=== PATIENT | male | born 1965 | race Caucasian/White ===

== ENCOUNTER 2019-10-06 11:22 | Inpatient (IN) | payer BC ==
[2019-10-06] MEDS ORDERED: LORazepam TAB(*) 1 MG PO ONE ×3 (11:44→12:49)
--- NOTE | 2019-10-06 11:44 | ED ---
Substance Abuse/Use - HPI Summary HPI Summary: The patient is a 54 y/o male arriving by ambulance [facility] with a chief complaint of detox request and medical clearance for alcohol abuse worse over the last week. He reports that he is a chronic alcoholic and recently had a plan to be admitted to [facility] [[email or web address]] for rehab, but he went to the facility this morning and was not medically clear. He states that he has been drinking constantly, approximately two pints of vodka a day, for the last week since finding out the plan for going to [facility] today. This morning, he had pint of vodka prior to leaving his home at 0800 this morning in [place]. He notes that he had been nauseous and vomiting with blood on the ride from [place] to [facility] [[email or web address] Because he was not medically clear, he transported to the ED from [facility] [[email or web address]] via ambulance. He states that he is going through withdrawal as he is very anxious now. He has been sober before from [id number] but relapsed due to stressors with his leaving. He has been placed on various psychiatric medications which he is non- complaint with secondary to his drinking habits. He denies any other past medical history other than alcoholism. No substance use. Medications reviewed. Allergies noted. - History Of Current Complaint Chief Complaint: EDDetoxRequest Stated Complaint: DT'S PER EMS Time Seen by Provider: 10/06/19 11:32 Hx Obtained From: Patient Onset/Duration of Drug/ETOH Abuse: Increased Since: - the last week Ingestion History: Type/Name Of Drug - vodka, Amount Ingested - 2 pints/day, Approximate Time Of Ingestion - last at 0800 States Increased Use Since: within the last week Timing Of Abuse: Daily Severity Initially: Moderate Severity Currently: Moderate Character: Anxious Aggravating Factor(s): Recent Stress Alleviating Factor(s): Nothing Associated Signs And Symptoms: Nausea, Vomiting, Other: - anxiety Related Hx: Drug/Alcohol Last Used @ - alcohol at 0800 this morning - Allergies/Home Medications Allergies/Adverse Reactions: Allergies Allergy/AdvReac Type Severity Reaction Status Date / Time No Known Allergies Allergy Verified 10/06/19 11:38 Home Medications: Home Medications Acamprosate DR (NF) [Campral (NF)] 666 mg PO TID 10/06/19 [History Confirmed ] Atorvastatin* [Lipitor*] 40 mg PO DAILY 10/06/19 [History Confirmed 10/06/19] Famotidine TAB 40 MG(NF) [Pepcid TAB 40 MG(NF)] 40 mg PO DAILY 10/06/19 [ History Confirmed 10/06/19] Folic Acid TAB* [Folvite TAB*] 1 mg PO DAILY 10/06/19 [History Confirmed ] Gabapentin CAP(*) [Neurontin 300 CAP(*)] 900 mg PO BEDTIME 10/06/19 [History Confirmed 10/06/19] Lisinopril TAB* [Prinivil TAB*] 20 mg PO DAILY 10/06/19 [History Confirmed 10/06] Meloxicam(NF) [Mobic(NF)] 15 mg PO DAILY 10/06/19 [History Confirmed 10/06/19] Metoprolol Tartrate TAB* [Lopressor TAB*] 50 mg PO DAILY 10/06/19 [History Confirmed 10/06/19] Naltrexone TAB* 50 mg PO DAILY 10/06/19 [History Confirmed 10/06/19] PARoxetine HCL TAB* [Paxil TAB*] 20 mg PO BEDTIME 10/06/19 [History Confirmed ] Pantoprazole TAB * [Protonix TAB*] 40 mg PO BID 10/06/19 [History Confirmed ] busPIRone TAB* [Buspar *] 30 mg PO BID 10/06/19 [History Confirmed 10/06/19] traZODone TAB* [Desyrel TAB*] 50 - 100 mg PO BEDTIME 10/06/19 [History Confirmed 10/06/19] PMH/Surg Hx/FS Hx/Imm Hx Endocrine/Hematology History: Denies: Hx Diabetes Respiratory History: Denies: Hx Asthma Psychiatric History: Reports: Hx Substance Abuse - alcohol - Surgical History Surgical History: None Surgery Procedure, Year, and Place: none Infectious Disease History: No Infectious Disease History: Denies: Traveled Outside the [place] in Last 30 Days - Family History Known Family History: Negative: Respiratory Disease, Seizure Disorder - Social History Alcohol Use: Daily Hx Substance Use: No Substance Use Type: Reports: None Smoking Status (MU): Unknown if Ever Smoked Review of Systems Positive: Vomiting - with blood, Nausea Psychological: Other - intoxicated Positive: Anxious All Other Systems Reviewed And Are Negative: Yes Physical Exam - Summary Physical Exam Summary: Appearance: The patient is well-nourished in no acute distress and in no acute pain. Skin: The skin is warm and dry, and skin color reflects adequate perfusion. HEENT: The head is normocephalic and atraumatic. The pupils are equal and reactive. The conjunctivae are clear and without drainage. Nares are patent and without drainage. Mouth reveals moist mucous membranes, and the throat is without erythema and exudate. The external ears are intact. The ear canals are patent and without drainage. The tympanic membranes are intact. Neck: The neck is supple with full range of motion and non-tender. There are no carotid bruits. There is no neck vein distension. Respiratory: Chest is non-tender. Lungs are clear to auscultation and breath sounds are symmetrical and equal. Cardiovascular: Heart is regular rate and rhythm. There is no murmur or rub auscultated. There is no peripheral edema and pulses are symmetrical and equal. Abdomen: The abdomen is soft and non-tender. There are normal bowel sounds heard in all four quadrants and there is no organomegaly palpated. Musculoskeletal: There is no back tenderness noted. Extremities are non-tender with full range of motion. There is good capillary refill. There is no peripheral edema or calf tenderness elicited. Neurological: Patient is alert and oriented to person, place and time. The patient has symmetrical motor strength in all four extremities. Cranial nerves are grossly intact. Deep tendon reflexes are symmetrical and equal in all four extremities. Psychiatric: The patient has an appropriate affect and does not exhibit any anxiety or depression. Triage Information Reviewed: Yes Vital Signs On Initial Exam: Initial Vitals Temp Pulse Resp BP Pulse Ox 98.4 F 128 22 192/96 95 10/06/19 11:23 10/06/19 11:23 10/06/19 11:23 10/06/19 11:23 10/06/19 11:23 Vital Signs Reviewed: Yes Procedures - Sedation Patient Received Moderate/Deep Sedation with Procedure: No Diagnostics - Vital Signs Vital Signs Temp Pulse Resp BP Pulse Ox 10/06/19 11:23 98.4 F 128 22 192/96 95 - Laboratory Result Diagrams: 10/06/19 11:47 10/06/19 11:47 Lab Statement: Any lab studies that have been ordered have been reviewed, and results considered in the medical decision making process. Re-Evaluation - Re-Evaluation First Eval Re-Evaluation Time: 14:00 Comment: Patient spoke with social work, agrees with admisison Course/Dx - Course Course Of Treatment: He remained stable here in the emergency department. He was given sedative medication for anxiety and agitation. He has a history of severe alcohol withdrawal and I spoke with the hospitalist Dr. Nicole about admitting him OBV. - Diagnoses Provider Diagnoses: Alcohol withdrawal - Physician Notifications Discussed Care Of Patient With: Jacinda Saldana - social work Instructed by Provider To: Admit As Observation - I spoke with Jacinda concerning the patient returning to [facility], and she states that the physician there is concerned of withdrawal for the patient as he has experienced seizures in the past. He will be medically clear at 20:00 tonight, which is too late for him to go to [facility] tonight as well. Jacinda will work towards a group home admission for the patient, which he agrees with. I discussed the patients case with Dr. Gagnon, who accepts the patient for admission [14:30]. Discharge ED - Sign-Out/Discharge Documenting (check all that apply): Patient Departure - Patient accepted for admission by Dr. Gagnon. - Discharge Plan Condition: Stable Disposition: ADMITTED TO [facility] Referrals: No Primary Care Phys,NOPCP [Primary Care Provider] - - Billing Disposition and Condition Condition: STABLE Disposition: Admitted to [facility] - Attestation Statements Document Initiated by Kaleb: Yes Documenting Scribe: Julia Low Provider For Whom Kaleb is Documenting (Include Credential): Dr. Abrahan Hassan MD Scribe Attestation: IJulia scribed for Dr. Abrahan Hassan MD on 10/06/19 at 1800. Scribe Documentation Reviewed: Yes Provider Attestation: The documentation as recorded by the Julia miller accurately reflects the service I personally performed and the decisions made by me, Dr. Abrahan Hassan MD Status of Scrmirela Document: Viewed
[2019-10-06 12:01] LABS: ABS Basophils 0.1 10^3/ul (0-0.2); ABS Monocytes 0.5 10^3/ul (0-0.8); ABS Neutrophils 11.2 10^3/ul (1.5-7.7); Hematocrit 42 % (42-52); Hemoglobin 14.4 g/dL (14.0-18.0); Lymphocyte % 8.1 %; Mean Corpuscular HGB Conc 34 g/dL (31-36); Mean Corpuscular Hemoglobin 33 pg (27-31); Mean Corpuscular Volume 97 fL (80-94); Mean Platelet Volume 8.1 fL (7.4-10.4); Platelet Count 227 10^3/uL (150-450); Red Blood Count 4.34 10^6 /uL (4.18-5.48); Red Cell Distribution Width 13 % (10-15); White Blood Count 12.8 10^3/uL (3.5-10.8)
[2019-10-06 12:19] LABS: ALT 81 U/L (7-52); AST 72 U/L (13-39); Albumin 4.9 g/dL (3.2-5.2); Albumin/Globulin Ratio 1.5 (1-3); Alkaline Phosphatase 76 U/L (34-104); Anion Gap 20 mmol/L (2-11); BUN/Creatinine Ratio 14.5 (8-20); Blood Urea Nitrogen 12 mg/dL (6-24); CO2 Carbon Dioxide 25 mmol/L (22-32); Calcium 9.3 mg/dL (8.6-10.3); Chloride 95 mmol/L (101-111); EGFR African American 117.3 (>60); EGFR Non-African American 96.9 (>60); Globulin 3.2 g/dL (2-4); Glucose 142 mg/dL (70-100); Magnesium 1.9 mg/dL (1.9-2.7); Potassium 3.8 mmol/L (3.5-5.0); Sodium 140 mmol/L (135-145); Total Protein 8.1 g/dL (6.4-8.9)
[2019-10-06 12:45] LABS: Acetaminophen < 15 mcg/mL; Alcohol 292 mg/dL (<10)
[2019-10-06] MEDS ORDERED: PROCHLORPERAZINE INJ 5 MG/ML 2 ML VIAL IV PRN (12:48)
[2019-10-06] MEDS ORDERED: Haloperidol TAB* 5 MG PO ONE (12:49)
[2019-10-06] MEDS ORDERED: diPHENhydraMINE PO* 50 MG PO ONE (12:49)
[2019-10-06 13:39] LABS: Urine Appearance Cloudy; Urine Bilirubin Negative (Negative); Urine Blood 1+ (Negative); Urine Color Yellow; Urine Glucose Negative (Negative); Urine Ketones 1+ (Negative); Urine Nitrite Negative (Negative); Urine Protein 2+(100 mg/dL) (Negative); Urine Specific Gravity 1.018 (1.010-1.030); Urine Urobilinogen Negative (Negative)
[2019-10-06 13:42] LABS: Urine Bacteria Absent (Absent); Urine Red Blood Cell Trace(0-2/hpf) (Absent); Urine Squamous Epithelial Cell Present (Absent); Urine White Blood Cell Trace(0-5/hpf) (Absent)
[2019-10-06 13:58] LABS: Urine Benzodiazepine Screen None Detected (None Detect); Urine Opiates Screen None Detected (None Detect)
[2019-10-06] MEDS ORDERED: Thiamine INJ* 100 MG, Folic Acid IV* 1 MG, Multiple Vitamin IV ADULT* 10 ML in NS 0.9% ... IV ONE (15:06)
[2019-10-06] MEDS ORDERED: Lisinopril TAB* 10 MG PO ONE (16:13)
[2019-10-06] MEDS ORDERED: Metoprolol Tartrate TAB* 50 mg PO ONE (16:15)
--- NOTE | 2019-10-06 16:35 | HP ---
CC: Dr. Crawford * HISTORY AND PHYSICAL: DATE OF ADMISSION: 10/06/19 PROVIDER: Rosa M Ross NP PRIMARY CARE PROVIDER: Dr. Crawford. ATTENDING PHYSICIAN WHILE IN THE HOSPITAL: Dr. Sonja Gagnon * (dictated by Rosa M Ross NP). CHIEF COMPLAINT: 1. "I would like alcohol detoxification." 2. Abdominal pain. HISTORY OF PRESENT ILLNESS: Mr. Curran is a 54-year-old male with a past medical history significant for alcohol abuse, depression, anxiety, hypertension , hyperlipidemia, GERD, who presented to the emergency room from [facility] due to alcohol intoxication. The patient was reporting to [facility] today for alcohol detoxification and rehab. When the patient arrived at [facility], he was not medically cleared due to his alcohol intoxication, so he was brought to the emergency room for further evaluation. The patient was found to have an alcohol level of 292 and reports that he has a history of withdrawal from alcohol with withdrawal seizures. Due to the patient's history of withdrawal, Hospital Medicine was asked to see and evaluate him for admission. The patient reports that he drank 1-1/2 pints of vodka this morning. He reports he stopped drinking at 8 a.m. He denies any suicidal or homicidal ideation. He denies any fever, chills, unintended weight loss, chest pain, or edema. No cough, hemoptysis, or shortness of breath. He does report nausea and vomiting, associated diarrhea and abdominal pain. He denies any gross hematuria or dysuria, focal weakness, sensory loss. Denies any visual complaints, dysphagia , arthralgias, myalgias, rashes, lesions, opens sores. He does report depression and anxiety, but denies any suicidal or homicidal ideation. While in the emergency room, the patient had routine lab work drawn. He was found to have an alcohol level of 292. His urine tox was negative with exception of cannabinoids that were positive. Due to the history of alcohol withdrawal seizures, Hospital Medicine will admit him to the hospital for detox and risk of withdrawal. PAST MEDICAL HISTORY: Significant for: 1. Alcohol abuse. 2. Depression. 3. Anxiety. 4. Hypertension. 5. Hyperlipidemia. 6. GERD. 7. Chronic knee and shoulder pain. PAST SURGICAL HISTORY: 1. Left eye surgery due to trauma. 2. Appendectomy. HOME MEDICATIONS: Include: 1. Vivek MEJIA 666 mg t.i.d. 2. Atorvastatin 40 mg p.o. daily. 3. Famotidine 40 mg p.o. daily. 4. Folic acid 1 mg p.o. daily. 5. Gabapentin 900 mg at bedtime. 6. Lisinopril 20 mg p.o. daily. 7. Metoprolol 50 mg p.o. daily. 8. Naltrexone 50 mg p.o. daily. 9. Paroxetine 20 mg p.o. daily. 10. Pantoprazole 40 mg p.o. daily. 11. Buspirone 30 mg p.o. b.i.d. 12. Trazodone 150 mg at bedtime. ALLERGIES: No known drug allergy. FAMILY HISTORY: Father at 58 from an DE. No reported history of diabetes or cancer within the family. SOCIAL HISTORY: The patient reports he smokes a pack a day. He does report for the past week he drank 2 pints of vodka daily. Denies any illicit drug use , though the patient's urine toxicology is positive for cannabinoids. The patient is . He lives with his sister and [id number]. Surrogate decision maker in the event he is unable to make his own decisions is his sister , Sri Singletary. He is a full code. REVIEW OF SYSTEMS: A 14-point review of systems was completed. All pertinent positives were mentioned in the HPI. Otherwise were negative. PHYSICAL EXAMINATION GENERAL: At this time, Mr. Curran is alert to verbal, answers questions appropriately. He is in no acute distress at this time. VITAL SIGNS: Blood pressure 183/108, heart rate 129, respirations are 26, temperature was 98.4. HEENT: Head is atraumatic, normocephalic. Eyes: His left eye has oval-shaped pupil from history of surgery from a traumatic injury. Right pupil is equal and reactive to light. Mucous membranes are moist. NECK: Supple. LUNGS: Clear to auscultation bilaterally. No wheezes, rales, or rhonchi. CARDIAC: S1, S2. Regular rate and rhythm. No murmurs, rubs, or gallops. ABDOMEN: Soft. He does have diffuse tenderness to all of his abdomen. Bowel sounds are active x4. EXTREMITIES: He is able to move all 4 extremities. There is no clubbing or cyanosis. NEUROLOGIC: He is awake to verbal. He is alert, oriented x3. He is drowsy, resting on the stretcher. His speech is clear. There are no gross focal deficits. SKIN: Intact. DIAGNOSTIC STUDIES/LAB DATA: WBCs are 12.8, RBCs 4.34, hemoglobin 14.4, hematocrit 42, platelet count 227. Sodium is 140, potassium 3.8, chloride 95, carbon dioxide was 25, anion gap was 20, BUN was 12, creatinine 0.83, glucose is 142, calcium 9.3, magnesium 1.9. Total bilirubin is 0.40, ASTs are 72, ALTs are 81, alkaline phosphatase 76. Lipase is currently pending. Urine, pH was 5 ; specific gravity 1.018; urine protein was 2+; ketones were 1+; blood 1+; nitrites were negative; bilirubin, urobilinogen, and leukocyte esterase were all negative; urine wbc's were trace; rbc's were trace; squamous epithelial cells were present; bacteria was absent; hyaline casts were present; glucose was negative. Urine toxicology: Acetaminophen was less than 15. Urine toxicology was negative with exception of cannabinoids that were positive. Serum alcohol was 292. ASSESSMENT AND PLAN: Mr. Curran is a 54-year-old male with a past medical history significant for alcohol abuse, depression, anxiety, hypertension, hyperlipidemia, gastroesophageal reflux disease, history of chronic knee and shoulder pain, who presented to [facility] from [facility] due to acute alcohol intoxication. He will be admitted due to symptoms of withdrawal under observation. 1. Alcohol abuse. The patient is currently tachycardic and hypertensive. He is not sweaty or diaphoretic. He has no hallucinations. He has received 3 mg of Ativan in the emergency room. We will place him on a [facility] protocol with seizure precautions and Ativan as needed for withdrawal symptoms. We will also give him a banana bag. I will start him on folic acid, thiamine, and multivitamin. 2. Hypertension. The patient is hypertensive. Withdrawal could be a contributing factor to his hypertension, though the patient did not take his routine blood pressure medications this morning. I will give him a dose of metoprolol and a dose of lisinopril at this time and resume his daily meds in the morning. 3. Abdominal pain. The patient does complain of abdominal pain. He does report a history of pancreatitis. His abdomen is soft, but he does have diffuse tenderness. He reports this is consistent with prior episodes of pancreatitis. I will add on a lipase and consider a CT of the abdomen and pelvis. 4. Hyperlipidemia. He will continue his atorvastatin 40 mg p.o. daily. 5. Gastroesophageal reflux disease. He should continue on pantoprazole 40 mg p.o. b.i.d. as previously prescribed. 6. Chronic pain. He can take gabapentin 900 mg at bedtime. 7. Depression and anxiety. He should continue on his buspirone 30 mg p.o. b.i.d. and paroxetine 20 mg p.o. daily. 8. Tobacco use disorder. The patient does currently smoke 1 pack of cigarettes per day. I will place him on a nicotine patch and he can have nicotine gum as needed for nicotine cravings. 9. FEN: He can have a clear liquid diet. 10. Code status: He is a full code. 11. DVT prophylaxis: I will place him on heparin subcu. TIME SPENT: Time spent on this admission was 60 minutes, greater than half that time was spent at the bedside reviewing events leading thus far to his hospitalization, performing physical exam, and reviewing my plan of care. I have discussed this with my attending, Dr. Sonja Gagnon; she is in agreement with my plan. ROSA M ROSS, HANDSTITCHING [employer]ACHINE [employer]ER [id number]/[facility] #: [id number] GRACE
[2019-10-06] MEDS: LORazepam TAB(*) 1 MG PO SCH (17:57)
[2019-10-06] MEDS: Enoxaparin(*) 40 MG/0.4 ML SYR SUBCUT SCH (18:00)
[2019-10-06] MEDS: Acetaminophen TAB* 325 MG PO PRN (18:45)
[2019-10-06] MEDS: Gabapentin CAP(*) 300 MG PO SCH (20:39)
[2019-10-06] MEDS: PARoxetine HCL TAB* 20 MG PO SCH (20:40)
[2019-10-06] MEDS: busPIRone TAB* 30 MG PO SCH (20:40)
[2019-10-06] MEDS: Pantoprazole TAB * 40 MG TAB PO SCH (20:40)
[2019-10-07] MEDS: LORazepam TAB(*) 1 MG PO SCH ×6 (01:19→22:21)
[2019-10-07 06:44] LABS: ABS Lymphocytes 2.1 10^3/ul (1.0-4.8); ABS Monocytes 0.8 10^3/ul (0-0.8); ABS Neutrophils 5.6 10^3/ul (1.5-7.7); Eosinophil % 0.2 %; Hematocrit 36 % (42-52); Hemoglobin 12.6 g/dL (14.0-18.0); Lymphocyte % 24.3 %; Mean Corpuscular HGB Conc 35 g/dL (31-36); Mean Corpuscular Hemoglobin 34 pg (27-31); Mean Corpuscular Volume 97 fL (80-94); Platelet Count 176 10^3/uL (150-450); Red Blood Count 3.73 10^6 /uL (4.18-5.48); Red Cell Distribution Width 13 % (10-15); White Blood Count 8.5 10^3/uL (3.5-10.8)
[2019-10-07 07:14] LABS: BUN/Creatinine Ratio 22.5 (8-20); EGFR African American 122.4 (>60); EGFR Non-African American 101.1 (>60); Potassium 3.8 mmol/L (3.5-5.0)
[2019-10-07] MEDS: Pantoprazole TAB * 40 MG TAB PO SCH ×2 (08:45→20:32)
[2019-10-07] MEDS: Metoprolol Tartrate TAB* 50 mg PO SCH (08:45)
[2019-10-07] MEDS: Folic Acid TAB* 1 MG PO SCH (08:45)
[2019-10-07] MEDS: Lisinopril TAB* 10 MG PO SCH (08:45)
[2019-10-07] MEDS: Multivitamins/Minerals TAB PO SCH (08:46)
[2019-10-07] MEDS: Atorvastatin* 40 MG TAB PO SCH (08:46)
[2019-10-07] MEDS: Thiamine TAB* 100 MG TAB PO SCH (08:46)
--- NOTE | 2019-10-07 11:33 | PN ---
Subjective Date of Service: 10/07/19 Interval History: Patient is feeling tremulous, anxious, diaphoretic, nauseated and is having non- bloody diarrhea with cramping. Patient denies CP, SOB. Patient is on board with going to rehab on Thursday. Patient states this is consistent with previous episodes of alcohol withdrawal. Family History: Unchanged from Admission Social History: Unchanged from Admission Past Medical History: Unchanged from Admission Objective Active Medications: Acetaminophen (Tylenol Tab*) 650 mg PO Q4H PRN PRN Reason: MILD PAIN or TEMP > 100.4 Last Admin: 10/06/19 18:45 Dose: 650 mg Atorvastatin Calcium (Lipitor*) 40 mg PO DAILY [facility] Last Admin: 10/07/19 08:46 Dose: 40 mg Buspirone HCl (Buspar Tab*) 30 mg PO BID [facility] Last Admin: 10/06/19 20:40 Dose: 30 mg Enoxaparin Sodium (Lovenox(*)) 40 mg SUBCUT Q24H [facility] Last Admin: 10/06/19 18:00 Dose: 40 mg Folic Acid (Folvite Tab*) 1 mg PO DAILY [facility] Last Admin: 10/07/19 08:45 Dose: 1 mg Gabapentin (Neurontin Cap(*)) 900 mg PO BEDTIME [facility] Last Admin: 10/06/19 20:39 Dose: 900 mg Lisinopril (Prinivil Tab*) 20 mg PO DAILY [facility] Last Admin: 10/07/19 08:45 Dose: 20 mg Lorazepam (Ativan Tab(*)) 0 - 6 mg PO .PER [facility] PROTOCOL [facility]; Protocol Last Admin: 10/07/19 08:46 Dose: 2 mg Lorazepam (Ativan Tab(*)) 2 mg PO Q12H [facility]; Taper Stop: 10/09/19 12:59 Last Admin: 10/07/19 08:46 Dose: 2 mg Metoprolol Tartrate (Lopressor Tab*) 50 mg PO DAILY [facility] Last Admin: 10/07/19 08:45 Dose: 50 mg Multivitamins/Minerals (Theragran/Minerals Tab*) 1 tab PO DAILY [facility] Last Admin: 10/07/19 08:46 Dose: 1 tab Pantoprazole Sodium (Protonix Tab*) 40 mg PO BID [facility] Last Admin: 10/07/19 08:45 Dose: 40 mg Paroxetine HCl (Paxil Tab*) 20 mg PO BEDTIME [facility] Last Admin: 10/06/19 20:40 Dose: 20 mg Thiamine HCl (Vitamin B-1 Tab*) 100 mg PO DAILY [facility] Last Admin: 10/07/19 08:46 Dose: 100 mg Vital Signs - 8 hr 10/07/19 10/07/19 10/07/19 03:29 04:03 07:53 Temperature 97.8 F 97.8 F Pulse Rate 85 93 Respiratory 20 16 16 Rate Blood Pressure 115/58 150/78 (mmHg) O2 Sat by Pulse 93 94 Oximetry 10/07/19 10/07/19 10/07/19 08:46 10:01 11:19 Temperature 98.3 F Pulse Rate 86 Respiratory 18 16 18 Rate Blood Pressure 136/67 (mmHg) O2 Sat by Pulse 96 Oximetry Oxygen Devices in Use Now: None Appearance: Patient is a 54yo male who appears stated age and is sitting in the bed and is tremulous and diaphoretic. Eyes: No Scleral Icterus, PERRLA Ears/Nose/Mouth/Throat: NL Teeth, Lips, Gums, Clear Oropharnyx, Mucous Membranes Moist Neck: NL Appearance and Movements; NL JVP, Trachea Midline Respiratory: Symmetrical Chest Expansion and Respiratory Effort, Clear to Auscultation Cardiovascular: NL Sounds; No Murmurs; No JVD, No Edema, - - Tachycardic. Abdominal: No Hepatosplenomegaly, - - Hyperactive bowel sounds. Lymphatic: No Cervical Adenopathy Extremities: No Edema, No Clubbing, Cyanosis Skin: No Rash or Ulcers, No Nodules or Sclerosis Neurological: Alert and Oriented x 3, NL Sensation, NL Muscle Strength and Tone , - - CN II-XII intact. Fine tremor. Result Diagrams: 10/07/19 06:05 10/07/19 06:05 Assess/Plan/Problems-Billing Assessment: Patient is a 54yo male with a PMH for alcoholism and alcohol withdrawal seizures. Here with alcohol withdrawal on WAM protocol. - Patient Problems (1) Alcohol withdrawal Current Visit: Yes Status: Acute Code(s): F10.239 - ALCOHOL DEPENDENCE WITH WITHDRAWAL, UNSPECIFIED SNOMED Code(s): 215903426 Comment: - Last drink yesterday - Syndrome consistent with alcohol withdrawal - History of seizures, WAM protocol and taper - Continue WAM and vitamin supplementation - Plan for rehab Thursday if stable. (2) History of seizure Current Visit: Yes Status: Acute Code(s): Z87.898 - PERSONAL HISTORY OF OTHER SPECIFIED CONDITIONS SNOMED Code(s): 522166437 Comment: - During alcohol withdrawal, On WAM and Ativan taper - No Seizures this admission (3) HTN (hypertension) Current Visit: Yes Status: Acute Code(s): I10 - ESSENTIAL (PRIMARY) HYPERTENSION SNOMED Code(s): 19375715 Comment: - Continue Metoprolol - Normotensive. (4) HLD (hyperlipidemia) Current Visit: Yes Status: Acute Code(s): E78.5 - HYPERLIPIDEMIA, UNSPECIFIED SNOMED Code(s): 18475776 Comment: - Continue Lipitor (5) DVT prophylaxis Current Visit: Yes Status: Acute Code(s): Z29.9 - ENCOUNTER FOR PROPHYLACTIC MEASURES, UNSPECIFIED SNOMED Code(s): 442548885 Comment: - Lovenox (6) Full code status Current Visit: Yes Status: Acute Code(s): Z78.9 - OTHER SPECIFIED HEALTH STATUS SNOMED Code(s): 419015596 Status and Disposition: Inpatient for alcohol withdrawal.
[2019-10-07] MEDS: busPIRone TAB* 30 MG PO SCH ×2 (14:08→20:29)
[2019-10-07] MEDS: Ondansetron INJ* 2 MG/ML VIAL IV PRN (16:46)
[2019-10-07] MEDS: Enoxaparin(*) 40 MG/0.4 ML SYR SUBCUT SCH (17:25)
[2019-10-07] MEDS: Gabapentin CAP(*) 300 MG PO SCH (20:28)
[2019-10-07] MEDS: Acetaminophen TAB* 325 MG PO PRN (20:31)
[2019-10-07] MEDS: PARoxetine HCL TAB* 20 MG PO SCH (20:32)
[2019-10-07] MEDS: traZODone TAB* 100 MG PO PRN (21:10)
[2019-10-08] MEDS: LORazepam TAB(*) 1 MG PO SCH ×3 (04:12→22:31)
[2019-10-08] MEDS: Multivitamins/Minerals TAB PO SCH (08:39)
[2019-10-08] MEDS: busPIRone TAB* 30 MG PO SCH ×3 (08:39→20:19)
[2019-10-08] MEDS: Lisinopril TAB* 10 MG PO SCH (08:39)
[2019-10-08] MEDS: Metoprolol Tartrate TAB* 50 mg PO SCH (08:40)
[2019-10-08] MEDS: Folic Acid TAB* 1 MG PO SCH (08:40)
[2019-10-08] MEDS: Thiamine TAB* 100 MG TAB PO SCH (08:40)
[2019-10-08] MEDS: Pantoprazole TAB * 40 MG TAB PO SCH ×2 (08:40→20:19)
[2019-10-08] MEDS: Atorvastatin* 40 MG TAB PO SCH (08:40)
[2019-10-08] MEDS ORDERED: Benzonatate CAP* 100 MG PO PRN (11:15)
--- NOTE | 2019-10-08 11:24 | PN ---
Subjective Date of Service: 10/08/19 Interval History: Patient is not feeling improved today. Patient is persistently treumulous, anxious, with diarrhea and abdominal cramping. Patient complains of mild SOB. Patient denies F/C, N/V, or other pain. Family History: Unchanged from Admission Social History: Unchanged from Admission Past Medical History: Unchanged from Admission Objective Active Medications: Acetaminophen (Tylenol Tab*) 650 mg PO Q4H PRN PRN Reason: MILD PAIN or TEMP > 100.4 Last Admin: 10/07/19 20:31 Dose: 650 mg Atorvastatin Calcium (Lipitor*) 40 mg PO DAILY [facility] Last Admin: 10/08/19 08:40 Dose: 40 mg Buspirone HCl (Buspar Tab*) 30 mg PO BID [facility] Last Admin: 10/08/19 08:39 Dose: 30 mg Enoxaparin Sodium (Lovenox(*)) 40 mg SUBCUT Q24H [facility] Last Admin: 10/07/19 17:25 Dose: 40 mg Folic Acid (Folvite Tab*) 1 mg PO DAILY [facility] Last Admin: 10/08/19 08:40 Dose: 1 mg Gabapentin (Neurontin Cap(*)) 900 mg PO BEDTIME [facility] Last Admin: 10/07/19 20:28 Dose: 900 mg Lisinopril (Prinivil Tab*) 20 mg PO DAILY [facility] Last Admin: 10/08/19 08:39 Dose: 20 mg Lorazepam (Ativan Tab(*)) 0 - 6 mg PO .PER [facility] PROTOCOL [facility]; Protocol Last Admin: 10/08/19 04:12 Dose: 2 mg Lorazepam (Ativan Tab(*)) 2 mg PO Q12H [facility]; Taper Stop: 10/09/19 12:59 Last Admin: 10/08/19 08:36 Dose: 2 mg Metoprolol Tartrate (Lopressor Tab*) 50 mg PO DAILY [facility] Last Admin: 10/08/19 08:40 Dose: 50 mg Multivitamins/Minerals (Theragran/Minerals Tab*) 1 tab PO DAILY [facility] Last Admin: 10/08/19 08:39 Dose: 1 tab Ondansetron HCl (Zofran Inj*) 4 mg IV Q6H PRN PRN Reason: NAUSEA Last Admin: 10/07/19 16:46 Dose: 4 mg Pantoprazole Sodium (Protonix Tab*) 40 mg PO BID [facility] Last Admin: 10/08/19 08:40 Dose: 40 mg Paroxetine HCl (Paxil Tab*) 20 mg PO BEDTIME [facility] Last Admin: 10/07/19 20:32 Dose: 20 mg Thiamine HCl (Vitamin B-1 Tab*) 100 mg PO DAILY [facility] Last Admin: 10/08/19 08:40 Dose: 100 mg Trazodone HCl (Desyrel Tab*) 100 mg PO BEDTIME PRN PRN Reason: INSOMNIA Last Admin: 10/07/19 21:10 Dose: 100 mg Varenicline (Chantix (Nf)) 1 mg PO BID [facility]; Protocol Vital Signs - 8 hr 10/08/19 10/08/19 10/08/19 04:00 04:04 04:12 Temperature 97.4 F Pulse Rate 77 Respiratory 18 18 16 Rate Blood Pressure 117/69 (mmHg) O2 Sat by Pulse 96 Oximetry 10/08/19 10/08/19 10/08/19 06:07 06:11 07:58 Temperature 98.0 F 98.0 F Pulse Rate 76 104 Respiratory 16 16 20 Rate Blood Pressure 109/61 132/76 (mmHg) O2 Sat by Pulse 93 91 Oximetry 10/08/19 10/08/19 10/08/19 08:00 08:10 08:36 Temperature Pulse Rate Respiratory 20 20 20 Rate Blood Pressure (mmHg) O2 Sat by Pulse Oximetry 10/08/19 10:02 Temperature Pulse Rate Respiratory 18 Rate Blood Pressure (mmHg) O2 Sat by Pulse Oximetry Oxygen Devices in Use Now: None Appearance: Patient is a 54yo male who appears stated age and is sitting in the bed in [facility]. Eyes: No Scleral Icterus, PERRLA Ears/Nose/Mouth/Throat: NL Teeth, Lips, Gums, Clear Oropharnyx, Mucous Membranes Moist Neck: NL Appearance and Movements; NL JVP, Trachea Midline Respiratory: Symmetrical Chest Expansion and Respiratory Effort, Clear to Auscultation Cardiovascular: NL Sounds; No Murmurs; No JVD, RRR, No Edema Abdominal: No Hepatosplenomegaly, - - Diffusely tender Lymphatic: No Cervical Adenopathy Extremities: No Edema, No Clubbing, Cyanosis Skin: No Rash or Ulcers, No Nodules or Sclerosis Neurological: Alert and Oriented x 3, NL Sensation, NL Muscle Strength and Tone , - - CN II-XII intact. Tremulous. Result Diagrams: 10/07/19 06:05 10/07/19 06:05 Microbiology and Other Data: Microbiology 10/06/19 13:10 Urine Culture - Final Urine Strep Group B Assess/Plan/Problems-Billing Assessment: Patient is a 54yo male with a PMH for alcoholism and alcohol withdrawal seizures. Here with alcohol withdrawal on WAM protocol. - Patient Problems (1) Alcohol withdrawal Current Visit: Yes Status: Acute Code(s): F10.239 - ALCOHOL DEPENDENCE WITH WITHDRAWAL, UNSPECIFIED SNOMED Code(s): 551768642 Comment: - Last drink on 10/06 in AM - Syndrome consistent with alcohol withdrawal - History of seizures, WAM protocol and taper until 10/09 - Continue WAM and vitamin supplementation - Plan for rehab Thursday if stable. (2) History of seizure Current Visit: Yes Status: Acute Code(s): Z87.898 - PERSONAL HISTORY OF OTHER SPECIFIED CONDITIONS SNOMED Code(s): 647616220 Comment: - During alcohol withdrawal, On WAM and Ativan taper - No Seizures this admission - Caution with Chantix (3) HTN (hypertension) Current Visit: Yes Status: Acute Code(s): I10 - ESSENTIAL (PRIMARY) HYPERTENSION SNOMED Code(s): 02210146 Comment: - Continue Metoprolol - Normotensive. (4) HLD (hyperlipidemia) Current Visit: Yes Status: Acute Code(s): E78.5 - HYPERLIPIDEMIA, UNSPECIFIED SNOMED Code(s): 32109443 Comment: - Continue Lipitor (5) DVT prophylaxis Current Visit: Yes Status: Acute Code(s): Z29.9 - ENCOUNTER FOR PROPHYLACTIC MEASURES, UNSPECIFIED SNOMED Code(s): 728078264 Comment: - Lovenox (6) Full code status Current Visit: Yes Status: Acute Code(s): Z78.9 - OTHER SPECIFIED HEALTH STATUS SNOMED Code(s): 383422753 Status and Disposition: Inpatient for alcohol withdrawal. Discharge Thursday if stable.
[2019-10-08] MEDS: CMCS: Varenicline (NF) 1 MG TAB PO SCH ×2 (11:35→20:22)
[2019-10-08] MEDS ORDERED: LORazepam INJ* 2 MG/ML 1 ML VIAL IV PUSH ONE (15:02)
[2019-10-08] MEDS ORDERED: Lorazepam PYXIS KEY PRN (15:02)
[2019-10-08] MEDS: Enoxaparin(*) 40 MG/0.4 ML SYR SUBCUT SCH (17:44)
[2019-10-08] MEDS: Gabapentin CAP(*) 300 MG PO SCH (20:19)
[2019-10-08] MEDS: PARoxetine HCL TAB* 20 MG PO SCH (21:39)
[2019-10-08] MEDS: Ondansetron INJ* 2 MG/ML VIAL IV PRN (22:31)
[2019-10-08] MEDS: traZODone TAB* 100 MG PO PRN (23:52)
[2019-10-09] MEDS: Folic Acid TAB* 1 MG PO SCH (08:34)
[2019-10-09] MEDS: CMCS: Varenicline (NF) 1 MG TAB PO SCH ×2 (08:34→22:43)
[2019-10-09] MEDS: Multivitamins/Minerals TAB PO SCH (08:34)
[2019-10-09] MEDS: Thiamine TAB* 100 MG TAB PO SCH (08:35)
[2019-10-09] MEDS: Pantoprazole TAB * 40 MG TAB PO SCH ×2 (08:35→22:43)
[2019-10-09] MEDS: Atorvastatin* 40 MG TAB PO SCH (08:35)
[2019-10-09] MEDS: LORazepam TAB(*) 1 MG PO SCH (08:36)
[2019-10-09] MEDS: busPIRone TAB* 30 MG PO SCH ×2 (08:36→22:43)
[2019-10-09] MEDS: Lisinopril TAB* 10 MG PO SCH (08:36)
[2019-10-09] MEDS ORDERED: Metoprolol Succinate XL TAB* 50 MG PO SCH (09:00)
--- NOTE | 2019-10-09 09:27 | PN ---
Subjective Date of Service: 10/09/19 Interval History: Patient is feeling as if his symptoms are improving. Patient has decreased tremors, decreased abdominal cramping and no more diarrhea. Patient denies CP, SOB, F/C, N/V, or other pain. Patient is still markedly drowsy. Family History: Unchanged from Admission Social History: Unchanged from Admission Past Medical History: Unchanged from Admission Objective Active Medications: Acetaminophen (Tylenol Tab*) 650 mg PO Q4H PRN PRN Reason: MILD PAIN or TEMP > 100.4 Last Admin: 10/07/19 20:31 Dose: 650 mg Atorvastatin Calcium (Lipitor*) 40 mg PO DAILY [facility] Last Admin: 10/09/19 08:35 Dose: 40 mg Benzonatate (Tessalon Cap*) 100 mg PO BID PRN PRN Reason: COUGH Buspirone HCl (Buspar Tab*) 30 mg PO BID [facility] Last Admin: 10/09/19 08:36 Dose: 30 mg Enoxaparin Sodium (Lovenox(*)) 40 mg SUBCUT Q24H [facility] Last Admin: 10/08/19 17:44 Dose: 40 mg Folic Acid (Folvite Tab*) 1 mg PO DAILY [facility] Last Admin: 10/09/19 08:34 Dose: 1 mg Gabapentin (Neurontin Cap(*)) 900 mg PO BEDTIME [facility] Last Admin: 10/08/19 20:19 Dose: 900 mg Lisinopril (Prinivil Tab*) 20 mg PO DAILY [facility] Last Admin: 10/09/19 08:36 Dose: 20 mg Lorazepam (Ativan Tab(*)) 0 - 6 mg PO .PER [facility] PROTOCOL [facility]; Protocol Last Admin: 10/08/19 04:12 Dose: 2 mg Lorazepam (Ativan Tab(*)) 1 mg PO Q12H [facility]; Taper Stop: 10/09/19 12:59 Last Admin: 10/09/19 08:36 Dose: 1 mg Metoprolol Succinate (Toprol Xl Tab*) 50 mg PO DAILY [facility] Last Admin: 10/09/19 08:35 Dose: 50 mg Miscellaneous (Ativan Pyxis Abdullahi) 1 ea N/A .ATIVAN IV ABDULLAHI PRN PRN Reason: PYXIS ABDULLAHI Multivitamins/Minerals (Theragran/Minerals Tab*) 1 tab PO DAILY [facility] Last Admin: 10/09/19 08:34 Dose: 1 tab Ondansetron HCl (Zofran Inj*) 4 mg IV Q6H PRN PRN Reason: NAUSEA Last Admin: 10/08/19 22:31 Dose: 4 mg Pantoprazole Sodium (Protonix Tab*) 40 mg PO BID [facility] Last Admin: 10/09/19 08:35 Dose: 40 mg Paroxetine HCl (Paxil Tab*) 20 mg PO BEDTIME [facility] Last Admin: 10/08/19 21:39 Dose: 20 mg Thiamine HCl (Vitamin B-1 Tab*) 100 mg PO DAILY [facility] Last Admin: 10/09/19 08:35 Dose: 100 mg Trazodone HCl (Desyrel Tab*) 100 mg PO BEDTIME PRN PRN Reason: INSOMNIA Last Admin: 10/08/19 23:52 Dose: 100 mg Varenicline (Chantix (Nf)) 1 mg PO BID [facility]; Protocol Last Admin: 10/09/19 08:34 Dose: 1 mg Vital Signs - 8 hr 10/09/19 10/09/19 10/09/19 01:30 02:00 02:17 Temperature 97.5 F Pulse Rate 89 Respiratory 18 16 16 Rate Blood Pressure 94/53 (mmHg) O2 Sat by Pulse 96 Oximetry 10/09/19 10/09/19 10/09/19 05:55 08:30 08:36 Temperature 97.8 F Pulse Rate 91 Respiratory 16 20 20 Rate Blood Pressure 127/73 (mmHg) O2 Sat by Pulse 96 Oximetry Oxygen Devices in Use Now: None Appearance: Patient is a 54yo male who appears stated age and is sitting in the bed in [facility]. Eyes: No Scleral Icterus, PERRLA Ears/Nose/Mouth/Throat: NL Teeth, Lips, Gums, Clear Oropharnyx, Mucous Membranes Moist Neck: NL Appearance and Movements; NL JVP, Trachea Midline Respiratory: Symmetrical Chest Expansion and Respiratory Effort, Clear to Auscultation Cardiovascular: NL Sounds; No Murmurs; No JVD, RRR, No Edema Abdominal: NL Sounds; No Tenderness; No Distention, No Hepatosplenomegaly Lymphatic: No Cervical Adenopathy Extremities: No Edema, No Clubbing, Cyanosis Skin: No Rash or Ulcers, No Nodules or Sclerosis Neurological: NL Sensation, NL Muscle Strength and Tone, - - Drowsy, Oriented Result Diagrams: 10/07/19 06:05 10/07/19 06:05 Microbiology and Other Data: Microbiology 10/06/19 13:10 Urine Culture - Final Urine Strep Group B Assess/Plan/Problems-Billing Assessment: Patient is a 54yo male with a PMH for alcoholism and alcohol withdrawal seizures. Here with alcohol withdrawal on WAM protocol. - Patient Problems (1) Alcohol withdrawal Current Visit: Yes Status: Acute Code(s): F10.239 - ALCOHOL DEPENDENCE WITH WITHDRAWAL, UNSPECIFIED SNOMED Code(s): 489064923 Comment: - Last drink on 10/06 in AM - Syndrome consistent with alcohol withdrawal - History of seizures, WAM protocol and taper until 10/09 - Continue WAM and vitamin supplementation - Plan for rehab 10/10 if stable. (2) History of seizure Current Visit: Yes Status: Acute Code(s): Z87.898 - PERSONAL HISTORY OF OTHER SPECIFIED CONDITIONS SNOMED Code(s): 581635832 Comment: - During alcohol withdrawal, On WAM and Ativan taper - No Seizures this admission - Caution with Chantix (3) HTN (hypertension) Current Visit: Yes Status: Acute Code(s): I10 - ESSENTIAL (PRIMARY) HYPERTENSION SNOMED Code(s): 41120499 Comment: - Borderline hypotensive - Decrease Metoprolol (4) HLD (hyperlipidemia) Current Visit: Yes Status: Acute Code(s): E78.5 - HYPERLIPIDEMIA, UNSPECIFIED SNOMED Code(s): 47770747 Comment: - Continue Lipitor (5) DVT prophylaxis Current Visit: Yes Status: Acute Code(s): Z29.9 - ENCOUNTER FOR PROPHYLACTIC MEASURES, UNSPECIFIED SNOMED Code(s): 713543855 Comment: - Lovenox (6) Full code status Current Visit: Yes Status: Acute Code(s): Z78.9 - OTHER SPECIFIED HEALTH STATUS SNOMED Code(s): 578716997 Status and Disposition: Inpatient for alcohol withdrawal. Discharge 09/30 to rehab likely.
[2019-10-09] MEDS: Enoxaparin(*) 40 MG/0.4 ML SYR SUBCUT SCH (17:15)
[2019-10-09] MEDS: Acetaminophen TAB* 325 MG PO PRN (19:24)
[2019-10-09] MEDS: PARoxetine HCL TAB* 20 MG PO SCH (22:44)
[2019-10-09] MEDS: Gabapentin CAP(*) 300 MG PO SCH (22:45)
[2019-10-09] MEDS: traZODone TAB* 100 MG PO PRN (22:45)
[2019-10-10] MEDS: Atorvastatin* 40 MG TAB PO SCH (07:59)
[2019-10-10] MEDS: Thiamine TAB* 100 MG TAB PO SCH (08:00)
[2019-10-10] MEDS: Folic Acid TAB* 1 MG PO SCH (08:01)
[2019-10-10] MEDS: Lisinopril TAB* 10 MG PO SCH (08:01)
[2019-10-10] MEDS: Metoprolol Succinate XL TAB* 25 MG PO SCH (08:01)
[2019-10-10] MEDS: Pantoprazole TAB * 40 MG TAB PO SCH ×2 (08:02→20:22)
[2019-10-10] MEDS: Multivitamins/Minerals TAB PO SCH (08:02)
[2019-10-10] MEDS: busPIRone TAB* 30 MG PO SCH ×2 (08:02→20:22)
[2019-10-10] MEDS: CMCS: Varenicline (NF) 1 MG TAB PO SCH ×2 (08:02→20:20)
[2019-10-10] MEDS: Ondansetron ODT TAB* 4 MG SL PRN ×2 (11:31→17:43)
[2019-10-10 13:47] LABS: ALT 59 U/L (7-52); AST 43 U/L (13-39); Albumin 3.8 g/dL (3.2-5.2); Albumin/Globulin Ratio 1.5 (1-3); Alkaline Phosphatase 62 U/L (34-104); Anion Gap 4 mmol/L (2-11); BUN/Creatinine Ratio 25.8 (8-20); Blood Urea Nitrogen 23 mg/dL (6-24); CO2 Carbon Dioxide 30 mmol/L (22-32); Calcium 8.9 mg/dL (8.6-10.3); Chloride 103 mmol/L (101-111); EGFR African American 108.2 (>60); EGFR Non-African American 89.4 (>60); Globulin 2.6 g/dL (2-4); Glucose 125 mg/dL (70-100); Magnesium 1.6 mg/dL (1.9-2.7); Potassium 3.8 mmol/L (3.5-5.0); Sodium 137 mmol/L (135-145); Total Protein 6.4 g/dL (6.4-8.9)
[2019-10-10] MEDS ORDERED: Magnesium Oxide TAB* 400 MG PO ONE (16:08)
[2019-10-10] MEDS: Enoxaparin(*) 40 MG/0.4 ML SYR SUBCUT SCH (17:45)
--- NOTE | 2019-10-10 21:54 | DS ---
CC: Dr. Crawford * DISCHARGE SUMMARY: DATE OF ADMISSION: 10/07/19 ANTICIPATED DATE OF DISCHARGE: 10/11/19 PRIMARY CARE PROVIDER: Dr. Crawford. MY ATTENDING WHILE IN THE HOSPITAL: Dr. Jesus Sharma.* (DICTATED BY LILLIE YANEZ) PRIMARY DISCHARGE DIAGNOSES: 1. Alcohol use disorder. 2. Alcohol withdrawal, resolved. 3. Alcoholic hepatitis. SECONDARY DISCHARGE DIAGNOSES: 1. Depression. 2. Anxiety. 3. Hypertension. 4. Hyperlipidemia. 5. Gastroesophageal reflux disease. STUDIES DONE WHILE IN THE HOSPITAL: Chest x-ray from 10/08/19 read as no active pulmonary disease. Gallbladder ultrasound 10/10/19 read as hepatic steatosis. Negative for gallbladder pathology, negative for ascites. MEDICATIONS AT DISCHARGE: 1. Lisinopril 20 mg p.o. daily. 2. Trazodone 50 to 100 mg p.o. at bedtime. 3. Buspirone 30 mg p.o. b.i.d. 4. Famotidine 40 mg p.o. daily. 5. Naltrexone 50 mg p.o. daily. 6. Paroxetine 20 mg p.o. at bedtime. 7. Meloxicam 15 mg p.o. daily. 8. Lipitor 40 mg p.o. daily. 9. Pantoprazole 40 mg p.o. b.i.d. 10. Gabapentin 900 mg p.o. at bedtime. 11. Folic acid 1 mg p.o. daily. 12. Acamprosate 666 mg p.o. t.i.d. 13. Tylenol 650 mg p.o. q.4 hours as needed. 14. Tessalon 100 mg p.o. b.i.d. 15. Metoprolol succinate 25 mg p.o. daily. 16. Multivitamin 1 tab p.o. daily. 17. Zofran 4 mg sublingually q.4 to 6 hours as needed. 18. Thiamine 100 mg p.o. daily. 19. Chantix 1 mg p.o. b.i.d. New medications at discharge: 1. Tylenol. 2. Tessalon. 3. Metoprolol succinate. 4. Multivitamin. 5. Zofran. 6. Thiamine. Medications discontinued at discharge: 1. Metoprolol tartrate 50 mg p.o. daily. HOSPITAL COURSE: This is a brief summary of the patient's presentation. For more details, please see the history and physical from Rosa M Ross NP on 10/06/19. In brief, the patient is a 54-year-old male with a past medical history significant for the above, who presented to the emergency department after being enrolled at [facility] for alcohol use disorder treatment. However, the patient did drink a large amount of vodka on the morning before he went and they did not provide detoxification services. He was therefore referred to the emergency department and was admitted to the hospital for alcohol withdrawal with plan of being transferred to [facility] afterwards. The patient has a history of alcohol withdrawal seizures. The patient was started on WAM protocol and the patient went into significant withdrawal from alcohol with diarrhea, abdominal cramping, tremulousness, agitation, and difficulty with ambulation. These symptoms mainly passed over from 10/07/19 to 10/10/19. On 10/10/19, the patient's main complaint was nausea and right upper quadrant pain, which was consistent, was not affected by eating, reproduced with palpation. A gallbladder ultrasound was ordered, which showed an unremarkable gallbladder and hepatic steatosis given the patient's alcohol abuse, elevated LFTs on admission, and symptoms that was attributable to alcoholic hepatitis. The patient's was not calculated, but he will be unlikely to benefit from steroids. The patient was unable to be taken to [facility] on 10/10/19 due to testing and feeling poorly, however, the patient is stable and amenable for discharge on 10/11/19 to [facility]. PHYSICAL EXAMINATION ON THE DAY OF DISCHARGE: General: The patient is a 54- year- old male, who appears stated age and sitting in the bed, in no acute distress. Vital Signs: Temperature 97.5, pulse rate 86, respiratory rate 16, oxygen saturation 96% on room air, blood pressure 116/66. HEENT: Head: Normocephalic, atraumatic. Sclerae anicteric. No conjunctival injection. Nasal mucosa moist. Oral mucosa moist. No pharyngeal erythema, discharge, or exudate. Neck: Supple, nontender. No lymphadenopathy. No carotid bruit auscultated. No JVD. Cardiac: Regular rate and rhythm. No clicks, murmurs, gallops, or rubs. Pulses 2+ in dorsalis pedis, posterior tibialis, and radial areas. Respiratory: Clear to auscultation bilaterally. No wheezes, rales, or rhonchi. Good air exchange bilaterally. Abdomen: Soft, nontender, nondistended. Bowel sounds present and normoactive in all 4 extremities. No hepatosplenomegaly. No abdominal bruits auscultated. No hepatojugular reflux. Genitourinary: No suprapubic or CVA tenderness. Skin: Clean, dry, and intact. No rash. Neuro: Cranial nerves II through XII intact. No focal deficits. Alert and oriented x3. DISCHARGE PLAN BY PROBLEM: 1. Alcohol abuse, alcohol withdrawal: The patient's alcohol withdrawal is complete. The patient is off of benzodiazepines. The patient is stable for discharge to [facility] for rehabilitation. The patient will be continued on his folic acid, thiamine, and multivitamin. The patient will also be continued on his acamprosate, gabapentin, and naloxone for aid with alcohol cravings. 2. Right upper quadrant pain: This is likely trivial with patient's alcoholic hepatitis. This should be treated with his meloxicam and Tylenol. If this persists or worsens, further evaluation should be undertaken. The patient had no issues with his gallbladder on ultrasound. 3. Hypertension: The patient was hypotensive even during alcohol withdrawal. While in the hospital, patient's metoprolol has been converted from tartrate once daily to succinate once daily and decreasing dose from 50 to 25. The patient will maintain on his lisinopril. The patient is currently normotensive. 4. Tobacco abuse: Continue patient's Chantix. This has worked for him in the past. 5. Disposition: [facility]. TIME SPENT: Approximately 60 minutes was spent on this discharge of this patient, 30 of which was spent [id number] with the patient obtaining history and physical and discussing treatment plan. LILLIE YANEZ [id number]/[facility] #: [id number]
[2019-10-11] MEDS ORDERED: Melatonin 3 MG TAB PO PRN (00:20)
[2019-10-11] MEDS ORDERED: traZODone TAB* 100 MG PO PRN (00:20)
[2019-10-11] MEDS ORDERED: diPHENhydraMINE PO* 25 MG PO PRN (00:21)
[2019-10-11] MEDS ORDERED: Magnesium Hydroxide LIQ* 30 ML UDC PO PRN (00:23)
[2019-10-11] MEDS: Gabapentin CAP(*) 300 MG PO SCH (00:34)
[2019-10-11] MEDS: PARoxetine HCL TAB* 20 MG PO SCH (00:36)
[2019-10-11] MEDS: Atorvastatin* 40 MG TAB PO SCH (07:38)
[2019-10-11] MEDS: Pantoprazole TAB * 40 MG TAB PO SCH (07:38)
[2019-10-11] MEDS: Folic Acid TAB* 1 MG PO SCH (07:38)
[2019-10-11] MEDS: Multivitamins/Minerals TAB PO SCH (07:39)
[2019-10-11] MEDS: Thiamine TAB* 100 MG TAB PO SCH (07:39)
[2019-10-11] MEDS: Lisinopril TAB* 10 MG PO SCH (07:58)
[2019-10-11] MEDS: Metoprolol Succinate XL TAB* 25 MG PO SCH (07:59)
[2019-10-11 08:02] VITALS: BP 98/56
[2019-10-11] MEDS: busPIRone TAB* 30 MG PO SCH (08:57)
[2019-10-11] MEDS: CMCS: Varenicline (NF) 1 MG TAB PO SCH (08:57)
--- NOTE | 2019-10-11 11:42 | DS ---
DISCHARGE SUMMARY: ADDENDUM: DATE OF DISCHARGE: 10/11/19 CONDITION AT THE TIME OF DISCHARGE: Stable. DISPOSITION: Home/going to [facility]. [id number]/[facility] #: [id number]
--- NOTE | 2019-10-11 11:42 | DS ---
DISCHARGE SUMMARY: ADDENDUM: Please refer to the detailed discharged summary dictated yesterday by LILLIE Richard or anticipated discharge today. No changes noted today and the patient is stable for discharge to [facility]. The patient is eager to go to [facility]. Physical exam within normal limits. All questions answered. Please note initial prescriptions were sent to [facility]. I have resent the patient's prescription s including thiamine, multivitamin, folic acid, Chantix, Toprol-XL, and Zofran to [facility] in [facility], which I am told is a preferred pharmacy for [facility]. TIME SPENT: Total time spent on discharge is equal to 25 minutes. [id number]/[facility] #: [id number]
== END 2019-10-11 09:25 | DRG 775 ==
LOC: ED 11:22 → MED 15:00 → OBSVTOIN 10-07 11:00
PROVIDERS: ADMIT Internal Medicine; ATTEND Internal Medicine
DX: F10.239 Alcohol dependence with withdrawal, unspecified (principal); I10 Essential (primary) hypertension; F41.9 Anxiety disorder, unspecified; F32.9 Major depressive disorder, single episode, unspecified; E78.5 Hyperlipidemia, unspecified; R19.7 Diarrhea, unspecified; K70.10 Alcoholic hepatitis without ascites; K21.9 Gastro-esophageal reflux disease without esophagitis; G89.29 Other chronic pain; M25.569 Pain in unspecified knee; M25.519 Pain in unspecified shoulder; F17.210 Nicotine dependence, cigarettes, uncomplicated; K76.0 Fatty (change of) liver, not elsewhere classified; F10.229 Alcohol dependence with intoxication, unspecified; Z91.19 Patient's noncompliance with other medical treatment and regimen; Y90.8 Blood alcohol level of 240 mg/100 ml or more
CPT/HCPCS: 36415; 71045; 76705; 80048; 80053; 80307; 80320; 80329; 81003; 81015; 83690; 83735; 85025; 87077; 87086; 99285; A9270-GY; G0480; J1650; J2060; J2405; J3411